=== PATIENT | male | born 1980 | race Two or more races ===

== ENCOUNTER 2016-06-14 10:21 | Emergency (ER) | payer SELFPAY ==
[~2016-06-14] VITALS: Ht 170.2 cm; Wt 72.6 kg
[2016-06-14] MEDS ORDERED: Methocarbamol 750mg tab ORAL ONE (11:30)
--- NOTE | 2016-06-14 12:01 | Diagnostic Imaging Report ---
Indications: Injury, pain Technique: 3 views of the cervical spine. Findings: Comparison: None. Lordotic curvature is preserved. Vertebral alignment is intact. No fracture, facet subluxation or dislocation, prevertebral soft tissue swelling, or other acute changes are identified. No degenerative or other chronic changes are demonstrated. IMPRESSION: No evidence of acute cervical injury.
[2016-06-14] MEDS ORDERED: IBUPROFEN600 MG ORAL (12:07)
[2016-06-14] MEDS ORDERED: ROBAXIN-750750 MG PO (12:07)
[2016-06-14 12:13] VITALS: BP 118/71
--- NOTE | 2016-06-14 12:38 | Diagnostic Imaging Report ---
Indication: Chest pain Technique: Single PA view of the chest. Findings: Comparison: None. The bones and extra pulmonary soft tissues, cardiomediastinal silhouette, pulmonary vasculature and parenchyma, and pleural surfaces are unremarkable. IMPRESSION: Negative PA chest.
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
== END 2016-06-14 12:14 | disposition home or self-care (01) ==
LOC: EMR 11:29
DX: M54.5 Low back pain (principal); M54.2 Cervicalgia; M79.605 Pain in left leg
CPT/HCPCS: 71010; 72040; 99283